=== PATIENT | female | born 2005 | race Caucasian/White ===

== ENCOUNTER 2025-05-18 13:46 | Emergency (ER) | payer OTHER, BC, SELFPAY ==
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
--- OUTSIDE RECORDS SUMMARY | 2025-05-18 13:50 | XMS_ITS | Patient Health Record ---
Author Organization [facility] Address [address] [place] [address] Care Team Providers Care Double Bottom Driver Name Role Phone Kinga Sun Unavailable [phone] Allergies No Known Allergies Results Component Value Reference Range Notes PRESCRIBED DRUGS, medMATCH(R ) ([id number]) Reviewed date:08/09/2024 10:58:19 AM Interpretation: Performing Lab:[facility] HUMPHRIES-[id number] [id number] Braeden Gallegos MD Notes/Report: FASTING: NO medMATCH Summary Prescribed Prescribed Not Prescribed Consistent Inconsistent Inconsistent Marijuana Metabolite DRUG MONITOR, MARIJUANA META B, QN, URINE ([id number]) Reviewed date:08/09/2024 10:58:04 AM Interpretation: Performing Lab:[facility] CEVALLOS-[facility] [id number] [facility] [id number] Mal Jeffers, Director - [id number] Benny AndersonDis[facility] [employer]-[place] Notes/Report: FASTING: NO Marijuana Metabolite 240 <5 ng/mL medMATCH Marijuana Metab INCONSISTENT Marijuana Comments See Adela abernathy Notes, LDT Notes Notes and Comments This drug testing is for medical treatment only. Analysis was performed as non-forensic testing and these results should be used only by healthcare providers to render diagnosis or treatment, or to monitor progress of medical conditions. Marijuana Notes: Marijuana Metabolite detected is consistent with exposure to Marijuana (THC) and/or hemp derived products. Some jurisdictions do not include hemp within the definition of Marijuana. LDT Notes: Confirmation tests were developed and their analytical performance characteristics have been determined by [employer]. It has not been cleared or approved by the FDA. This assay has been validated pursuant to the CLIA regulations and is used for clinical purposes. medCoresonicTCH(R) enables providers to identify if drug use is consistent or inconsistent with a corresponding prescribed medication(s) list. Healthcare Providers needing Interpretation assistance, please contact us at [phone] ( ) M-F, 8am to 10pm EST Test Reviewed date:07/28/2024 10:48:16 AM Interpretation: Performing Lab: Notes/Report: Test urine NEG 0 - 0 UDT Reviewed date:07/28/2024 10:48:16 AM Interpretation: Performing Lab: Notes/Report: THC POS 0 - 50 ng/ml Cocaine NEG 0 - 300 ng/ml Amphetamine NEG 0 - 1000 ng/ml Buprenorphine (BUP) NEG 0 - 10 ng/ml Secobarbital (Bar) NEG 0 - 300 ng/ml Oxazepam (BZO) NEG 0 - 300 ng/ml 0-qsvxgzjafb-8,5-ppngnjuz-2, 3-diphen ylpyrrolidine (EDDP) NEG 0 - 300 ng/ml Methamphetamine (MET) NEG 0 - 1000 ng/ml Methylenedioxymethamphetamine (MDMA) NEG 0 - 500 ng/ml Morphine (MOP 300/[id number]) NEG 0 - 300 ng/ml Methadone (MTD) NEG 0 - 300 ng/ml Phencyclidine (PCP) NEG 0 - 25 ng/ml Nortriptyline (TCA) NEG 0 - 1000 ng/ml Oxycodone NEG 0 - 300 ng/ml x NEG 0 - 300 ng/ml Reason For Referral No Information Medications Medication SIG (Take, Route, Frequency, Duration) Notes Start Date End Date Status buPROPion HCl ER (XL) 150 MG TAKE 1 TABLET BY MOUTH DAILY; Duration: 90 Active hydrOXYzine HCl 10 MG 1 tablet Orally tw ice a day; Duration: 30 days 01/12/2025 Active Social History Tobacco Use: Social History Observation Description Date Details (start date - stop date) Never Smoker NA - NA Sex Assigned At : Social History Observation Description Sex Assigned At Female Household Question Answer Notes Marital status: single Number of adults in household: 1 Number of children in household: 0 Level of education: not finished college in [employer]- plan to graduate 03/18 [employer] Sexual History Question Answer Notes Had sex in the past 12 months (vaginal, oral, or anal)? Yes with Men only Prevention strategies discussed: Condoms Tobacco Control (Standard) Question Answer Notes Tobacco use: Nonsmoker Additional Findings: Tobacco non-user Current no nsmoker AUDIT-C (Standard) Question Answer Notes Did you have a drink contain ing alcohol in the past year? Yes How often did you have six o r more drinks on one occasion in the past year? Less than monthly (1 point) How many drinks did you have on a typical day when you were drinking in the past year? 3 or 4 drinks (1 point) How often did you have a dri nk containing alcohol in the past year? Monthly or less (1 point) Points 3 Problems Problem Type SNOMED Code ICD Code Onset Dates Problem Status W/U Status Risk Notes Problem Depression Screening (441408367) Encounter for screening for depression (Z13.31) Active confirmed Problem Generalized anxiety disorder (54927356) NAREN (generalized anxiety disorder) (F41.1) Active confirmed Problem Mild recurrent major depression (83016079) MDD (major depressive disorder), recurrent episode, mild (F33.0) Active confirmed Problem Nondependent cannabis abuse (476497552) Marijuana use (F12.90) Active confirmed Vital Signs Heart Rate 62 /min 10/23/2024 Respiratory Rate 16 /min 08/25/2024 Height-cm 160.02 cm 10/23/2024 Blood pressure diastolic 73 mm Hg 10/23/2024 Weight-kg 82.55 kg 10/23/2024 Height 63 in 10/23/2024 Blood pressure systolic 121 mm Hg 10/23/2024 Weight 182.0 lbs 10/23/2024 BMI 32.24 kg/m2 10/23/2024 Encounters Encounter Location Date Provider Diagnosis [facility] [address] [place] [address] 07/28/2024 Kinga Sun MDD (major depressive disorder), recurrent episode, mild F33.0 ; NAREN (generalized anxiety disorder) F41.1 and Marijuana use F12.90 [facility] [address] [place] [address] 08/25/2024 Kinga Sun MDD (major depressive disorder), recurrent episode, mild F33.0 ; NAREN (generalized anxiety disorder) F41.1 and Marijuana use F12.90 [facility] [address] [place] [address] 10/23/2024 Kinga Sun MDD (major depressive disorder), recurrent episode, mild F33.0 ; NAREN (generalized anxiety disorder) F41.1 and Marijuana use F12.90 [facility] [address] [place] [address] 01/12/2025 Kinga Sun Encounter for screening for depression Z13.31 ; MDD (major depressive disorder), recurrent episode, mild F33.0 ; NAREN (generalized anxiety disorder) F41.1 and Marijuana use F12.90 [facility] [address] [place] [address] 01/24/2025 Kinga Sun NAREN (generalized anxiety disorder) F41.1 Assessments Encounter Date Diagnosis (ICD Code) Assessment Notes Treatment Notes Treatment Clinical Notes Section Notes 07/28/2024 NAREN (generalized anxiety disorder) (ICD-10 - F41.1) Learning About Generalized Anxiety Disorder material was published, Generalized Anxiety Disorder: Care Instructions material was published, Learning About Anxiety Disorders material was published depression- disucss and educated on medication options conitnue therapy anxiety- disucss and educated on medication options Will add Buspar 5 mg twice a day for anxiety and depression cannabis use- educated on decrease use to stopping no control substance prescribed by ROSARIO Recommend decrease/stop cannabis use as it can negatively impact mood, motivation, anxiety, sleep, focus/concentratio n/memory (vigilance, elasticity, processing and attention); can also contribute to development of psychosis. http_s://www.nimh. nih.gov/health/top ics/mental-health- medications http_s://www.bao. org/Klrvb-Fcjpzd-D llness/Treatments/ Gtdqdn-Annsph-Gmmz cations Recommend decrease/stop cannabis use as it may be negatively impacting mood, motivation, anxiety, sleep, focus; can also contribute to development of psychosis Cannabis/marijuana information: http_s://karen.nih. gov/publications/d rugfacts/cannabis- marijuana http_s://www.[employer]/cannabi u-gss-mxiatiuf-mar ijuana-adhd/ http_s://www.bao. org/Ilwbp-Mweenb-G llness/Mental-Heal th-Conditions http_s://psychcent [employer].com/depression /omm-pssxwtrgc-tdw cvoeq-uz-iteqsoxqi n#treatments http__s://www.nimh .nih.gov/health/to pics/mental-health -medications http__s://www.bao .org/About-Mental- Illness/Treatments /Gpcait-Mjojse-Uft ications educated on all medications, benefits, side effects and risk, and educated on depression, anxiety, and ADHD, mood d/o and educated on compliance of medications, metabolic and movement d/o education appointment's, continue therapy discussion with patient about course of treatment and patient instructions. education on serotonin syndrome Discussed and educated pt regarding benzodiazepines are generally not intended for prolonged use and that use can cause tolerance, dependence, depression, and associated memory issues including dementias (this list is not exhaustive). Benzodiazepine use is generally not recommended concurrently with pain medications and/or other controlled substances educated on all medications, benefits, side effects and risk, and educated on depression, anxiety, and ADHD, mood d/o and educated on compliance of medications, metabolic and movement d/o education appointment is, continue therapy discussion with patient about course of treatment and patient instructions. education on serotonin syndrome SSRI/SNRI side effects discussed including but not limited to, gastric upset, nausea, vomiting, diarrhea and/or constipation, weight changes, sexual side effects including loss of libido, increased suicidal thoughts/behaviors in children and young adults, and serotonin syndrome. Medication Management and Follow-Up - Plan: - Schedule follow-up appointments every 1-3 months to monitor the patient's response to the medication regimen. - Reinforce the importance of avoiding recreational drug use due to potential neurotoxicity and interactions with prescribed medications. 07/28/2024 MDD (major depressive disorder), recurrent episode, mild (ICD-10 - F33.0) Learning About Depression Screening material was published, Learning About How to Get Help During a Mental Health Crisis material was published, Learning About Depression During material was published depression- disucss and educated on medication options conitnue therapy anxiety- disucss and educated on medication options Will add Buspar 5 mg twice a day for anxiety and depression cannabis use- educated on decrease use to stopping no control substance prescribed by ROSARIO Recommend decrease/stop cannabis use as it can negatively impact mood, motivation, anxiety, sleep, focus/concentratio n/memory (vigilance, elasticity, processing and attention); can also contribute to development of psychosis. http_s://www.nimh. nih.gov/health/top ics/mental-health- medications http_s://www.bao. org/Lwxsu-Laupds-O llness/Treatments/ Eicyee-Xuotsv-Jzlk cations Recommend decrease/stop cannabis use as it may be negatively impacting mood, motivation, anxiety, sleep, focus; can also contribute to development of psychosis Cannabis/marijuana information: http_s://karen.nih. gov/publications/d rugfacts/cannabis- marijuana http_s://www.[employer]/cannabi j-hgw-dxydlyik-mar ijuana-adhd/ http_s://www.bao. org/Hdyed-Lumqah-V llness/Mental-Heal th-Conditions http_s://psychShowroomprive.com/depression /yue-faagcxvwc-lob duyue-vg-xabktoesb n#treatments http__s://www.nimh .nih.gov/health/to pics/mental-health -medications http__s://www.bao .org/About-Mental- Illness/Treatments /Llfdaq-Qfennm-Qkr ications educated on all medications, benefits, side effects and risk, and educated on depression, anxiety, and ADHD, mood d/o and educated on compliance of medications, metabolic and movement d/o education appointment's, continue therapy discussion with patient about course of treatment and patient instructions. education on serotonin syndrome Discussed and educated pt regarding benzodiazepines are generally not intended for prolonged use and that use can cause tolerance, dependence, depression, and associated memory issues including dementias (this list is not exhaustive). Benzodiazepine use is generally not recommended concurrently with pain medications and/or other controlled substances educated on all medications, benefits, side effects and risk, and educated on depression, anxiety, and ADHD, mood d/o and educated on compliance of medications, metabolic and movement d/o education appointment is, continue therapy discussion with patient about course of treatment and patient instructions. education on serotonin syndrome SSRI/SNRI side effects discussed including but not limited to, gastric upset, nausea, vomiting, diarrhea and/or constipation, weight changes, sexual side effects including loss of libido, increased suicidal thoughts/behaviors in children and young adults, and serotonin syndrome. Medication Management and Follow-Up - Plan: - Schedule follow-up appointments every 1-3 months to monitor the patient's response to the medication regimen. - Reinforce the importance of avoiding recreational drug use due to potential neurotoxicity and interactions with prescribed medications. 08/25/2024 MDD (major depressive disorder), recurrent episode, mild (ICD-10 - F33.0) Learning About Depression Screening material was published, Learning About How to Get Help During a Mental Health Crisis material was published, Learning About Depression During material was published depression- disucss and educated on medication options conitnue therapy Add Wellbutrin XL 150 mg in am anxiety- disucss and educated on medication options d/c Buspar 5 mg twice a day for anxiety and depression- patient was taking daily - did not remember to take BID and also needed to eat with rx cannabis use- educated on decrease use to stopping no control substance prescribed by ROSARIO Recommend decrease/stop cannabis use as it can negatively impact mood, motivation, anxiety, sleep, focus/concentratio n/memory (vigilance, elasticity, processing and attention); can also contribute to development of psychosis. http_s://www.nimh. nih.gov/health/top ics/mental-health- medications http_s://www.bao. org/Ybnkp-Kcdcsm-Y llness/Treatments/ Tpfixc-Tynehf-Sgxa cations Recommend decrease/stop cannabis use as it may be negatively impacting mood, motivation, anxiety, sleep, focus; can also contribute to development of psychosis Cannabis/marijuana information: http_s://karen.nih. gov/publications/d rugfacts/cannabis- marijuana http_s://www.[employer].hCentive/cannabi q-bmr-kccaqlss-mar ijuana-adhd/ http_s://www.bao. org/Oohkj-Vfcsnb-S llness/Mental-Heal th-Conditions http_s://psychcent [employer] [employer].com/depression /dng-hwgufusty-duu jykoe-fl-vvznelgla n#treatments http__s://www.nimh .nih.gov/health/to pics/mental-health -medications http__s://www.bao .org/About-Mental- Illness/Treatments /Xdjros-Cobehb-Euc ications educated on all medications, benefits, side effects and risk, and educated on depression, anxiety, and ADHD, mood d/o and educated on compliance of medications, metabolic and movement d/o education appointment's, continue therapy discussion with patient about course of treatment and patient instructions. education on serotonin syndrome Discussed and educated pt regarding benzodiazepines are generally not intended for prolonged use and that use can cause tolerance, dependence, depression, and associated memory issues including dementias (this list is not exhaustive). Benzodiazepine use is generally not recommended concurrently with pain medications and/or other controlled substances educated on all medications, benefits, side effects and risk, and educated on depression, anxiety, and ADHD, mood d/o and educated on compliance of medications, metabolic and movement d/o education appointment is, continue therapy discussion with patient about course of treatment and patient instructions. education on serotonin syndrome SSRI/SNRI side effects discussed including but not limited to, gastric upset, nausea, vomiting, diarrhea and/or constipation, weight changes, sexual side effects including loss of libido, increased suicidal thoughts/behaviors in children and young adults, and serotonin syndrome. Medication Management and Follow-Up - Plan: - Schedule follow-up appointments every 1-3 months to monitor the patient's response to the medication regimen. - Reinforce the importance of avoiding recreational drug use due to potential neurotoxicity and interactions with prescribed medications. 10/23/2024 MDD (major depressive disorder), recurrent episode, mild (ICD-10 - F33.0) Learning About Depression Screening material was published, Learning About How to Get Help During a Mental Health Crisis material was published, Learning About Depression During material was published depression- disucss and educated on medication options conitnue therapy Wellbutrin XL 150 mg in am anxiety- disucss and educated on medication options cannabis use- educated on decrease use to stopping no control substance prescribed by ROSARIO Recommend decrease/stop cannabis use as it can negatively impact mood, motivation, anxiety, sleep, focus/concentratio n/memory (vigilance, elasticity, processing and attention); can also contribute to development of psychosis. http_s://www.nim. nih.gov/health/top ics/mental-health- medications http_s://www.bao. org/Sebvc-Majryh-U llness/Treatments/ Axnbjd-Uzdeol-Iumm cations Recommend decrease/stop cannabis use as it may be negatively impacting mood, motivation, anxiety, sleep, focus; can also contribute to development of psychosis Cannabis/marijuana information: http_s://karen.nih. gov/publications/d rugfacts/cannabis- marijuana http_s://www.[employer]/cannabi r-nwe-jwhqfsnb-mar ijuana-adhd/ http_s://www.bao. org/Zkwal-Bjdtuu-G llness/Mental-Heal th-Conditions http_s://psychShowroomprive.com/depression /xyb-ewopzabhz-cgk alzit-yf-ypoiibspj n#treatments http__s://www.nimh .nih.gov/health/to pics/mental-health -medications http__s://www.bao .org/About-Mental- Illness/Treatments /Jevhnc-Xendrf-Isx ications educated on all medications, benefits, side effects and risk, and educated on depression, anxiety, and ADHD, mood d/o and educated on compliance of medications, metabolic and movement d/o education appointment's, continue therapy discussion with patient about course of treatment and patient instructions. education on serotonin syndrome Discussed and educated pt regarding benzodiazepines are generally not intended for prolonged use and that use can cause tolerance, dependence, depression, and associated memory issues including dementias (this list is not exhaustive). Benzodiazepine use is generally not recommended concurrently with pain medications and/or other controlled substances educated on all medications, benefits, side effects and risk, and educated on depression, anxiety, and ADHD, mood d/o and educated on compliance of medications, metabolic and movement d/o education appointment is, continue therapy discussion with patient about course of treatment and patient instructions. education on serotonin syndrome SSRI/SNRI side effects discussed including but not limited to, gastric upset, nausea, vomiting, diarrhea and/or constipation, weight changes, sexual side effects including loss of libido, increased suicidal thoughts/behaviors in children and young adults, and serotonin syndrome. Medication Management and Follow-Up - Plan: - Schedule follow-up appointments every 1-3 months to monitor the patient's response to the medication regimen. - Reinforce the importance of avoiding recreational drug use due to potential neurotoxicity and interactions with prescribed medications. 01/12/2025 Encounter for screening for depression (ICD-10 - Z13.31) depression- disucss and educated on medication options conitnue therapy Wellbutrin XL 150 mg in am anxiety- disucss and educated on medication options Add Vistaril 10 mg twice a day as needed cannabis use- educated on decrease use to stopping no control substance prescribed by ROSARIO Recommend decrease/stop cannabis use as it can negatively impact mood, motivation, anxiety, sleep, focus/concentratio n/memory (vigilance, elasticity, processing and attention); can also contribute to development of psychosis. http_s://www.nimh. nih.gov/health/top ics/mental-health- medications http_s://www.bao. org/Rlyss-Dxauev-L llness/Treatments/ Stjlgd-Lpsehu-Qwvh cations Recommend decrease/stop cannabis use as it may be negatively impacting mood, motivation, anxiety, sleep, focus; can also contribute to development of psychosis Cannabis/marijuana information: http_s://karen.nih. gov/publications/d rugfacts/cannabis- marijuana http_s://www.[employer]/cannabi o-cah-fyzjksmm-mar ijuana-adhd/ http_s://www.bao. org/Gvons-Bbjsex-K llness/Mental-Heal th-Conditions http_s://psychShowroomprive.com/depression /aih-mkshyjptq-hnd ovskr-ho-szcztxugk n#treatments http__s://www.nimh .nih.gov/health/to pics/mental-health -medications http__s://www.bao .org/About-Mental- Illness/Treatments /Gpukxl-Fcskci-Irb ications educated on all medications, benefits, side effects and risk, and educated on depression, anxiety, and ADHD, mood d/o and educated on compliance of medications, metabolic and movement d/o education appointment's, continue therapy discussion with patient about course of treatment and patient instructions. education on serotonin syndrome Discussed and educated pt regarding benzodiazepines are generally not intended for prolonged use and that use can cause tolerance, dependence, depression, and associated memory issues including dementias (this list is not exhaustive). Benzodiazepine use is generally not recommended concurrently with pain medications and/or other controlled substances educated on all medications, benefits, side effects and risk, and educated on depression, anxiety, and ADHD, mood d/o and educated on compliance of medications, metabolic and movement d/o education appointment is, continue therapy discussion with patient about course of treatment and patient instructions. education on serotonin syndrome SSRI/SNRI side effects discussed including but not limited to, gastric upset, nausea, vomiting, diarrhea and/or constipation, weight changes, sexual side effects including loss of libido, increased suicidal thoughts/behaviors in children and young adults, and serotonin syndrome. Medication Management and Follow-Up - Plan: - Schedule follow-up appointments every 1-3 months to monitor the patient's response to the medication regimen. - Reinforce the importance of avoiding recreational drug use due to potential neurotoxicity and interactions with prescribed medications. 01/24/2025 NAREN (generalized anxiety disorder) (ICD-10 - F41.1) 10/23/2024 NAREN (generalized anxiety disorder) (ICD-10 - F41.1) Learning About Generalized Anxiety Disorder material was published, Generalized Anxiety Disorder: Care Instructions material was published, Learning About Anxiety Disorders material was published depression- disucss and educated on medication options conitnue therapy Wellbutrin XL 150 mg in am anxiety- disucss and educated on medication options cannabis use- educated on decrease use to stopping no control substance prescribed by ROSARIO Recommend decrease/stop cannabis use as it can negatively impact mood, motivation, anxiety, sleep, focus/concentratio n/memory (vigilance, elasticity, processing and attention); can also contribute to development of psychosis. http_s://www.nimh. nih.gov/health/top ics/mental-health- medications http_s://www.bao. org/Yrqca-Zjnhdo-B llness/Treatments/ Duxbvb-Wnyfjc-Rref cations Recommend decrease/stop cannabis use as it may be negatively impacting mood, motivation, anxiety, sleep, focus; can also contribute to development of psychosis Cannabis/marijuana information: http_s://karen.nih. gov/publications/d rugfacts/cannabis- marijuana http_s://www.[employer].hCentive/cannabi g-isc-qqzkpkpu-mar ijuana-adhd/ http_s://www.bao. org/Mdziy-Kwmajm-W llness/Mental-Heal th-Conditions http_s://psychcent ral.com/depression /dwq-vwpxjxnjh-tzo soqbs-ks-rxbhvqfbu n#treatments http__s://www.[facility] .nih.gov/health/to pics/mental-health -medications http__s://www.bao .org/About-Mental- Illness/Treatments /Iomchv-Lcgsah-Izf ications educated on all medications, benefits, side effects and risk, and educated on depression, anxiety, and ADHD, mood d/o and educated on compliance of medications, metabolic and movement d/o education appointment's, continue therapy discussion with patient about course of treatment and patient instructions. education on serotonin syndrome Discussed and educated pt regarding benzodiazepines are generally not intended for prolonged use and that use can cause tolerance, dependence, depression, and associated memory issues including dementias (this list is not exhaustive). Benzodiazepine use is generally not recommended concurrently with pain medications and/or other controlled substances educated on all medications, benefits, side effects and risk, and educated on depression, anxiety, and ADHD, mood d/o and educated on compliance of medications, metabolic and movement d/o education appointment is, continue therapy discussion with patient about course of treatment and patient instructions. education on serotonin syndrome SSRI/SNRI side effects discussed including but not limited to, gastric upset, nausea, vomiting, diarrhea and/or constipation, weight changes, sexual side effects including loss of libido, increased suicidal thoughts/behaviors in children and young adults, and serotonin syndrome. Medication Management and Follow-Up - Plan: - Schedule follow-up appointments every 1-3 months to monitor the patient's response to the medication regimen. - Reinforce the importance of avoiding recreational drug use due to potential neurotoxicity and interactions with prescribed medications. 01/12/2025 MDD (major depressive disorder), recurrent episode, mild (ICD-10 - F33.0) Learning About Depression Screening material was published, Learning About How to Get Help During a Mental Health Crisis material was published, Learning About Depression During material was published depression- disucss and educated on medication options conitnue therapy Wellbutrin XL 150 mg in am anxiety- disucss and educated on medication options Add Vistaril 10 mg twice a day as needed cannabis use- educated on decrease use to stopping no control substance prescribed by ROSARIO Recommend decrease/stop cannabis use as it can negatively impact mood, motivation, anxiety, sleep, focus/concentratio n/memory (vigilance, elasticity, processing and attention); can also contribute to development of psychosis. http_s://www.nimh. nih.gov/health/top ics/mental-health- medications http_s://www.bao. org/Lwott-Ntomol-E llness/Treatments/ Oaxysr-Uxduwh-Doxm cations Recommend decrease/stop cannabis use as it may be negatively impacting mood, motivation, anxiety, sleep, focus; can also contribute to development of psychosis Cannabis/marijuana information: http_s://karen.nih. gov/publications/d rugfacts/cannabis- marijuana http_s://www.[employer]/cannabi m-sef-dctfyjxj-mar ijuana-adhd/ http_s://www.bao. org/Hxtrs-Bbuivh-V llness/Mental-Heal th-Conditions http_s://[employer]/depression /ete-gpkkdgeyg-gdg quufe-xz-ykwvwvoyw n#treatments http__s://www.nimh .nih.gov/health/to pics/mental-health -medications http__s://www.bao .org/About-Mental- Illness/Treatments /Mzfsbi-Molnxu-Nio ications educated on all medications, benefits, side effects and risk, and educated on depression, anxiety, and ADHD, mood d/o and educated on compliance of medications, metabolic and movement d/o education appointment's, continue therapy discussion with patient about course of treatment and patient instructions. education on serotonin syndrome Discussed and educated pt regarding benzodiazepines are generally not intended for prolonged use and that use can cause tolerance, dependence, depression, and associated memory issues including dementias (this list is not exhaustive). Benzodiazepine use is generally not recommended concurrently with pain medications and/or other controlled substances educated on all medications, benefits, side effects and risk, and educated on depression, anxiety, and ADHD, mood d/o and educated on compliance of medications, metabolic and movement d/o education appointment is, continue therapy discussion with patient about course of treatment and patient instructions. education on serotonin syndrome SSRI/SNRI side effects discussed including but not limited to, gastric upset, nausea, vomiting, diarrhea and/or constipation, weight changes, sexual side effects including loss of libido, increased suicidal thoughts/behaviors in children and young adults, and serotonin syndrome. Medication Management and Follow-Up - Plan: - Schedule follow-up appointments every 1-3 months to monitor the patient's response to the medication regimen. - Reinforce the importance of avoiding recreational drug use due to potential neurotoxicity and interactions with prescribed medications. 07/28/2024 Marijuana use (ICD-10 - F12.90) Marijuana Use: Care Instructions material was published, Learning About Cannabis Use Disorder material was published depression- disucss and educated on medication options conitnue therapy anxiety- disucss and educated on medication options Will add Buspar 5 mg twice a day for anxiety and depression cannabis use- educated on decrease use to stopping no control substance prescribed by ROSARIO Recommend decrease/stop cannabis use as it can negatively impact mood, motivation, anxiety, sleep, focus/concentratio n/memory (vigilance, elasticity, processing and attention); can also contribute to development of psychosis. http_s://www.nimh. nih.gov/health/top ics/mental-health- medications http_s://www.bao. org/Tkbeg-Krnfdh-S llness/Treatments/ Vpjuzv-Nvwrks-Fbki cations Recommend decrease/stop cannabis use as it may be negatively impacting mood, motivation, anxiety, sleep, focus; can also contribute to development of psychosis Cannabis/marijuana information: http_s://karen.nih. gov/publications/d rugfacts/cannabis- marijuana http_s://www.[employer]/cannabi d-fcw-ctfseiah-mar ijuana-adhd/ http_s://www.bao. org/Czzvg-Mponkb-V llness/Mental-Heal th-Conditions http_s://psychcent [employer].com/depression /pmi-jmjtfqyyb-toe uteyk-eh-btdknrsmd n#treatments http__s://www.nimh .nih.gov/health/to pics/mental-health -medications http__s://www.bao .org/About-Mental- Illness/Treatments /Yvqxrx-Pfqhkx-Agm ications educated on all medications, benefits, side effects and risk, and educated on depression, anxiety, and ADHD, mood d/o and educated on compliance of medications, metabolic and movement d/o education appointment's, continue therapy discussion with patient about course of treatment and patient instructions. education on serotonin syndrome Discussed and educated pt regarding benzodiazepines are generally not intended for prolonged use and that use can cause tolerance, dependence, depression, and associated memory issues including dementias (this list is not exhaustive). Benzodiazepine use is generally not recommended concurrently with pain medications and/or other controlled substances educated on all medications, benefits, side effects and risk, and educated on depression, anxiety, and ADHD, mood d/o and educated on compliance of medications, metabolic and movement d/o education appointment is, continue therapy discussion with patient about course of treatment and patient instructions. education on serotonin syndrome SSRI/SNRI side effects discussed including but not limited to, gastric upset, nausea, vomiting, diarrhea and/or constipation, weight changes, sexual side effects including loss of libido, increased suicidal thoughts/behaviors in children and young adults, and serotonin syndrome. Medication Management and Follow-Up - Plan: - Schedule follow-up appointments every 1-3 months to monitor the patient's response to the medication regimen. - Reinforce the importance of avoiding recreational drug use due to potential neurotoxicity and interactions with prescribed medications. 08/25/2024 NAREN (generalized anxiety disorder) (ICD-10 - F41.1) Learning About Generalized Anxiety Disorder material was published, Generalized Anxiety Disorder: Care Instructions material was published, Learning About Anxiety Disorders material was published depression- disucss and educated on medication options conitnue therapy Add Wellbutrin XL 150 mg in am anxiety- disucss and educated on medication options d/c Buspar 5 mg twice a day for anxiety and depression- patient was taking daily - did not remember to take BID and also needed to eat with rx cannabis use- educated on decrease use to stopping no control substance prescribed by ROSARIO Recommend decrease/stop cannabis use as it can negatively impact mood, motivation, anxiety, sleep, focus/concentratio n/memory (vigilance, elasticity, processing and attention); can also contribute to development of psychosis. http_s://www.nimh. nih.gov/health/top ics/mental-health- medications http_s://www.abo. org/Dgupa-Ywzfwi-S llness/Treatments/ Ecmvgt-Ctyqmr-Qoed cations Recommend decrease/stop cannabis use as it may be negatively impacting mood, motivation, anxiety, sleep, focus; can also contribute to development of psychosis Cannabis/marijuana information: http_s://karen.nih. gov/publications/d rugfacts/cannabis- marijuana http_s://www.[employer]/cannabi z-ryt-zbaadaui-mar ijuana-adhd/ http_s://www.bao. org/Xzkbu-Mxwonj-L llness/Mental-Heal th-Conditions http_s://[employer].com/depression /bay-muoddbmwc-gcx wvctg-nr-oevuvkzfs n#treatments http__s://www.[facility] .nih.gov/health/to pics/mental-health -medications http__s://www.bao .org/About-Mental- Illness/Treatments /Fwakfb-Kkamfn-Ufp ications educated on all medications, benefits, side effects and risk, and educated on depression, anxiety, and ADHD, mood d/o and educated on compliance of medications, metabolic and movement d/o education appointment's, continue therapy discussion with patient about course of treatment and patient instructions. education on serotonin syndrome Discussed and educated pt regarding benzodiazepines are generally not intended for prolonged use and that use can cause tolerance, dependence, depression, and associated memory issues including dementias (this list is not exhaustive). Benzodiazepine use is generally not recommended concurrently with pain medications and/or other controlled substances educated on all medications, benefits, side effects and risk, and educated on depression, anxiety, and ADHD, mood d/o and educated on compliance of medications, metabolic and movement d/o education appointment is, continue therapy discussion with patient about course of treatment and patient instructions. education on serotonin syndrome SSRI/SNRI side effects discussed including but not limited to, gastric upset, nausea, vomiting, diarrhea and/or constipation, weight changes, sexual side effects including loss of libido, increased suicidal thoughts/behaviors in children and young adults, and serotonin syndrome. Medication Management and Follow-Up - Plan: - Schedule follow-up appointments every 1-3 months to monitor the patient's response to the medication regimen. - Reinforce the importance of avoiding recreational drug use due to potential neurotoxicity and interactions with prescribed medications. 10/23/2024 Marijuana use (ICD-10 - F12.90) Marijuana Use: Care Instructions material was published, Learning About Cannabis Use Disorder material was published depression- disucss and educated on medication options conitnue therapy Wellbutrin XL 150 mg in am anxiety- disucss and educated on medication options cannabis use- educated on decrease use to stopping no control substance prescribed by ROSARIO Recommend decrease/stop cannabis use as it can negatively impact mood, motivation, anxiety, sleep, focus/concentratio n/memory (vigilance, elasticity, processing and attention); can also contribute to development of psychosis. http_s://www.nimh. nih.gov/health/top ics/mental-health- medications http_s://www.bao. org/Zjsyw-Qirhdd-E llness/Treatments/ Guvset-Afpnhk-Oarl cations Recommend decrease/stop cannabis use as it may be negatively impacting mood, motivation, anxiety, sleep, focus; can also contribute to development of psychosis Cannabis/marijuana information: http_s://karen.nih. gov/publications/d rugfacts/cannabis- marijuana http_s://www.[employer]/cannabi l-ezi-tmwlftiy-mar ijuana-adhd/ http_s://www.bao. org/Xrdwl-Iaoxxk-E llness/Mental-Heal th-Conditions http_s://[employer].com/depression /ijw-pfsldcxdm-uup rbihk-xv-xacnftdeb n#treatments http__s://www.nimh .nih.gov/health/to pics/mental-health -medications http__s://www.bao .org/About-Mental- Illness/Treatments /Wjmwec-Ihqssd-Edg ications educated on all medications, benefits, side effects and risk, and educated on depression, anxiety, and ADHD, mood d/o and educated on compliance of medications, metabolic and movement d/o education appointment's, continue therapy discussion with patient about course of treatment and patient instructions. education on serotonin syndrome Discussed and educated pt regarding benzodiazepines are generally not intended for prolonged use and that use can cause tolerance, dependence, depression, and associated memory issues including dementias (this list is not exhaustive). Benzodiazepine use is generally not recommended concurrently with pain medications and/or other controlled substances educated on all medications, benefits, side effects and risk, and educated on depression, anxiety, and ADHD, mood d/o and educated on compliance of medications, metabolic and movement d/o education appointment is, continue therapy discussion with patient about course of treatment and patient instructions. education on serotonin syndrome SSRI/SNRI side effects discussed including but not limited to, gastric upset, nausea, vomiting, diarrhea and/or constipation, weight changes, sexual side effects including loss of libido, increased suicidal thoughts/behaviors in children and young adults, and serotonin syndrome. Medication Management and Follow-Up - Plan: - Schedule follow-up appointments every 1-3 months to monitor the patient's response to the medication regimen. - Reinforce the importance of avoiding recreational drug use due to potential neurotoxicity and interactions with prescribed medications. 08/25/2024 Marijuana use (ICD-10 - F12.90) Marijuana Use: Care Instructions material was published, Learning About Cannabis Use Disorder material was published depression- disucss and educated on medication options conitnue therapy Add Wellbutrin XL 150 mg in am anxiety- disucss and educated on medication options d/c Buspar 5 mg twice a day for anxiety and depression- patient was taking daily - did not remember to take BID and also needed to eat with rx cannabis use- educated on decrease use to stopping no control substance prescribed by ROSARIO Recommend decrease/stop cannabis use as it can negatively impact mood, motivation, anxiety, sleep, focus/concentratio n/memory (vigilance, elasticity, processing and attention); can also contribute to development of psychosis. http_s://www.nimh. nih.gov/health/top ics/mental-health- medications http_s://www.bao. org/Zdpvm-Cjregm-F llness/Treatments/ Jtqexn-Pfhlxn-Loxq cations Recommend decrease/stop cannabis use as it may be negatively impacting mood, motivation, anxiety, sleep, focus; can also contribute to development of psychosis Cannabis/marijuana information: http_s://karen.nih. gov/publications/d rugfacts/cannabis- marijuana http_s://www.[employer]/cannabi c-wnh-cmhoyqtb-mar ijuana-adhd/ http_s://www.bao. org/Cyfwg-Portxs-S llness/Mental-Heal th-Conditions http_s://psychcent [employer].com/depression /nar-bjerpdwpc-dcr dceyi-pv-lterhaemz n#treatments http__s://www.nimh .nih.gov/health/to pics/mental-health -medications http__s://www.bao .org/About-Mental- Illness/Treatments /Jtcnmo-Lslhgz-Trz ications educated on all medications, benefits, side effects and risk, and educated on depression, anxiety, and ADHD, mood d/o and educated on compliance of medications, metabolic and movement d/o education appointment's, continue therapy discussion with patient about course of treatment and patient instructions. education on serotonin syndrome Discussed and educated pt regarding benzodiazepines are generally not intended for prolonged use and that use can cause tolerance, dependence, depression, and associated memory issues including dementias (this list is not exhaustive). Benzodiazepine use is generally not recommended concurrently with pain medications and/or other controlled substances educated on all medications, benefits, side effects and risk, and educated on depression, anxiety, and ADHD, mood d/o and educated on compliance of medications, metabolic and movement d/o education appointment is, continue therapy discussion with patient about course of treatment and patient instructions. education on serotonin syndrome SSRI/SNRI side effects discussed including but not limited to, gastric upset, nausea, vomiting, diarrhea and/or constipation, weight changes, sexual side effects including loss of libido, increased suicidal thoughts/behaviors in children and young adults, and serotonin syndrome. Medication Management and Follow-Up - Plan: - Schedule follow-up appointments every 1-3 months to monitor the patient's response to the medication regimen. - Reinforce the importance of avoiding recreational drug use due to potential neurotoxicity and interactions with prescribed medications. 01/12/2025 NAREN (generalized anxiety disorder) (ICD-10 - F41.1) Learning About Generalized Anxiety Disorder material was published, Generalized Anxiety Disorder: Care Instructions material was published, Learning About Anxiety Disorders material was published depression- disucss and educated on medication options conitnue therapy Wellbutrin XL 150 mg in am anxiety- disucss and educated on medication options Add Vistaril 10 mg twice a day as needed cannabis use- educated on decrease use to stopping no control substance prescribed by ROSARIO Recommend decrease/stop cannabis use as it can negatively impact mood, motivation, anxiety, sleep, focus/concentratio n/memory (vigilance, elasticity, processing and attention); can also contribute to development of psychosis. http_s://www.nimh. nih.gov/health/top ics/mental-health- medications http_s://www.bao. org/Inkjy-Ylmgju-A llness/Treatments/ Azpvpk-Jqiqmn-Pqum cations Recommend decrease/stop cannabis use as it may be negatively impacting mood, motivation, anxiety, sleep, focus; can also contribute to development of psychosis Cannabis/marijuana information: http_s://karen.nih. gov/publications/d rugfacts/cannabis- marijuana http_s://www.[employer]/cannabi c-qtn-pddhlfod-mar ijuana-adhd/ http_s://www.bao. org/Kidew-Vcidap-L llness/Mental-Heal th-Conditions http_s://psychcent [employer].com/depression /ruw-lxyqmdffc-bdk gobnq-oc-srpzxilap n#treatments http__s://www.nimh .nih.gov/health/to pics/mental-health -medications http__s://www.bao .org/About-Mental- Illness/Treatments /Pwjwcj-Hjsnlj-Sor ications educated on all medications, benefits, side effects and risk, and educated on depression, anxiety, and ADHD, mood d/o and educated on compliance of medications, metabolic and movement d/o education appointment's, continue therapy discussion with patient about course of treatment and patient instructions. education on serotonin syndrome Discussed and educated pt regarding benzodiazepines are generally not intended for prolonged use and that use can cause tolerance, dependence, depression, and associated memory issues including dementias (this list is not exhaustive). Benzodiazepine use is generally not recommended concurrently with pain medications and/or other controlled substances educated on all medications, benefits, side effects and risk, and educated on depression, anxiety, and ADHD, mood d/o and educated on compliance of medications, metabolic and movement d/o education appointment is, continue therapy discussion with patient about course of treatment and patient instructions. education on serotonin syndrome SSRI/SNRI side effects discussed including but not limited to, gastric upset, nausea, vomiting, diarrhea and/or constipation, weight changes, sexual side effects including loss of libido, increased suicidal thoughts/behaviors in children and young adults, and serotonin syndrome. Medication Management and Follow-Up - Plan: - Schedule follow-up appointments every 1-3 months to monitor the patient's response to the medication regimen. - Reinforce the importance of avoiding recreational drug use due to potential neurotoxicity and interactions with prescribed medications. 01/12/2025 Marijuana use (ICD-10 - F12.90) Marijuana Use: Care Instructions material was published, Learning About Cannabis Use Disorder material was published depression- disucss and educated on medication options conitnue therapy Wellbutrin XL 150 mg in am anxiety- disucss and educated on medication options Add Vistaril 10 mg twice a day as needed cannabis use- educated on decrease use to stopping no control substance prescribed by ROSARIO Recommend decrease/stop cannabis use as it can negatively impact mood, motivation, anxiety, sleep, focus/concentratio n/memory (vigilance, elasticity, processing and attention); can also contribute to development of psychosis. http_s://www.nimh. nih.gov/health/top ics/mental-health- medications http_s://www.bao. org/Slpdg-Siqxhx-D llness/Treatments/ Jnklhe-Cwwtve-Kbml cations Recommend decrease/stop cannabis use as it may be negatively impacting mood, motivation, anxiety, sleep, focus; can also contribute to development of psychosis Cannabis/marijuana information: http_s://karen.nih. gov/publications/d rugfacts/cannabis- marijuana http_s://www.[employer]/cannabi x-qmz-rwtjpemf-mar ijuana-adhd/ http_s://www.bao. org/Zpvbf-Wblxqk-T llness/Mental-Heal th-Conditions http_s://[employer].com/depression /lxc-rwveqxlhq-qhu fahdc-qq-ehqtgbtjd n#treatments http__s://www.nimh .nih.gov/health/to pics/mental-health -medications http__s://www.bao .org/About-Mental- Illness/Treatments /Donivp-Pjjeey-Xpp ications educated on all medications, benefits, side effects and risk, and educated on depression, anxiety, and ADHD, mood d/o and educated on compliance of medications, metabolic and movement d/o education appointment's, continue therapy discussion with patient about course of treatment and patient instructions. education on serotonin syndrome Discussed and educated pt regarding benzodiazepines are generally not intended for prolonged use and that use can cause tolerance, dependence, depression, and associated memory issues including dementias (this list is not exhaustive). Benzodiazepine use is generally not recommended concurrently with pain medications and/or other controlled substances educated on all medications, benefits, side effects and risk, and educated on depression, anxiety, and ADHD, mood d/o and educated on compliance of medications, metabolic and movement d/o education appointment is, continue therapy discussion with patient about course of treatment and patient instructions. education on serotonin syndrome SSRI/SNRI side effects discussed including but not limited to, gastric upset, nausea, vomiting, diarrhea and/or constipation, weight changes, sexual side effects including loss of libido, increased suicidal thoughts/behaviors in children and young adults, and serotonin syndrome. Medication Management and Follow-Up - Plan: - Schedule follow-up appointments every 1-3 months to monitor the patient's response to the medication regimen. - Reinforce the importance of avoiding recreational drug use due to potential neurotoxicity and interactions with prescribed medications. 07/28/2024 Other Learning About Depression Screening material was printed, Buspirone Oral Tablet (BUSPIRONE - ORAL) material was published depression- disucss and educated on medication options conitnue therapy anxiety- disucss and educated on medication options Will add Buspar 5 mg twice a day for anxiety and depression cannabis use- educated on decrease use to stopping no control substance prescribed by ROSARIO Recommend decrease/stop cannabis use as it can negatively impact mood, motivation, anxiety, sleep, focus/concentratio n/memory (vigilance, elasticity, processing and attention); can also contribute to development of psychosis. http_s://www.nimh. nih.gov/health/top ics/mental-health- medications http_s://www.bao. org/Ipude-Fselue-Y llness/Treatments/ Gcftmn-Yafkfr-Gnpd cations Recommend decrease/stop cannabis use as it may be negatively impacting mood, motivation, anxiety, sleep, focus; can also contribute to development of psychosis Cannabis/marijuana information: http_s://karen.nih. gov/publications/d rugfacts/cannabis- marijuana http_s://www.FlowCardia.hCentive/cannabi u-lcs-hnrnfezd-mar ijuana-adhd/ http_s://www.bao. org/Pdagd-Xyzzhd-W llness/Mental-Heal th-Conditions http_s://psychcent [employer].com/depression /vsn-ytdgvofns-dbc efesp-iq-jooyjrbjb n#treatments http__s://www.nimh .nih.gov/health/to pics/mental-health -medications http__s://www.bao .org/About-Mental- Illness/Treatments /Fuxziq-Kopdvn-Eug ications educated on all medications, benefits, side effects and risk, and educated on depression, anxiety, and ADHD, mood d/o and educated on compliance of medications, metabolic and movement d/o education appointment's, continue therapy discussion with patient about course of treatment and patient instructions. education on serotonin syndrome Discussed and educated pt regarding benzodiazepines are generally not intended for prolonged use and that use can cause tolerance, dependence, depression, and associated memory issues including dementias (this list is not exhaustive). Benzodiazepine use is generally not recommended concurrently with pain medications and/or other controlled substances educated on all medications, benefits, side effects and risk, and educated on depression, anxiety, and ADHD, mood d/o and educated on compliance of medications, metabolic and movement d/o education appointment is, continue therapy discussion with patient about course of treatment and patient instructions. education on serotonin syndrome SSRI/SNRI side effects discussed including but not limited to, gastric upset, nausea, vomiting, diarrhea and/or constipation, weight changes, sexual side effects including loss of libido, increased suicidal thoughts/behaviors in children and young adults, and serotonin syndrome. Medication Management and Follow-Up - Plan: - Schedule follow-up appointments every 1-3 months to monitor the patient's response to the medication regimen. - Reinforce the importance of avoiding recreational drug use due to potential neurotoxicity and interactions with prescribed medications. 08/25/2024 Other Bupropion Extended Release Oral Tablet (BUPROPION HCL EXTENDED-RELEAS E (ANTIDEPRESSANT ) - ORAL) material was published depression- disucss and educated on medication options conitnue therapy Add Wellbutrin XL 150 mg in am anxiety- disucss and educated on medication options d/c Buspar 5 mg twice a day for anxiety and depression- patient was taking daily - did not remember to take BID and also needed to eat with rx cannabis use- educated on decrease use to stopping no control substance prescribed by ROSARIO Recommend decrease/stop cannabis use as it can negatively impact mood, motivation, anxiety, sleep, focus/concentratio n/memory (vigilance, elasticity, processing and attention); can also contribute to development of psychosis. http_s://www.nimh. nih.gov/health/top ics/mental-health- medications http_s://www.bao. org/Twudb-Ycklcv-Z llness/Treatments/ Ezjtnv-Xgrcus-Lcbw cations Recommend decrease/stop cannabis use as it may be negatively impacting mood, motivation, anxiety, sleep, focus; can also contribute to development of psychosis Cannabis/marijuana information: http_s://karen.nih. gov/publications/d rugfacts/cannabis- marijuana http_s://www.[employer]/cannabi g-xte-iyogrsna-mar ijuana-adhd/ http_s://www.bao. org/Elmhn-Zwhzjs-U llness/Mental-Heal th-Conditions http_s://psychShowroomprive.com/depression /dfc-xqhghqokm-tel afkcg-zf-harrruawb n#treatments http__s://www.nimh .nih.gov/health/to pics/mental-health -medications http__s://www.bao .org/About-Mental- Illness/Treatments /Dvhsau-Rwmktb-Uje ications educated on all medications, benefits, side effects and risk, and educated on depression, anxiety, and ADHD, mood d/o and educated on compliance of medications, metabolic and movement d/o education appointment's, continue therapy discussion with patient about course of treatment and patient instructions. education on serotonin syndrome Discussed and educated pt regarding benzodiazepines are generally not intended for prolonged use and that use can cause tolerance, dependence, depression, and associated memory issues including dementias (this list is not exhaustive). Benzodiazepine use is generally not recommended concurrently with pain medications and/or other controlled substances educated on all medications, benefits, side effects and risk, and educated on depression, anxiety, and ADHD, mood d/o and educated on compliance of medications, metabolic and movement d/o education appointment is, continue therapy discussion with patient about course of treatment and patient instructions. education on serotonin syndrome SSRI/SNRI side effects discussed including but not limited to, gastric upset, nausea, vomiting, diarrhea and/or constipation, weight changes, sexual side effects including loss of libido, increased suicidal thoughts/behaviors in children and young adults, and serotonin syndrome. Medication Management and Follow-Up - Plan: - Schedule follow-up appointments every 1-3 months to monitor the patient's response to the medication regimen. - Reinforce the importance of avoiding recreational drug use due to potential neurotoxicity and interactions with prescribed medications. Plan Of Treatment No Information Insurance Providers Payer Name Payer Address Payer Phone Subscriber Number Group Number Insured Name Patient Relationship to Insured Coverage Start Date Coverage End Date [facility] [address] [place] [phone] [id number] Shavonne Burdick Self - patient is the insured Medical (General) History Medical History History ICD Code Past Psychiatric History: Anxiety Disord er abdominal aortic aneurysm: No atrial fibrillation: No chronic fatigue syndrome: No essential tremor: No hyperlipidemia: No hypertension: No Parkinson's disease: No restless leg syndrome: No stroke: No subdural hematoma: No type 1 diabetes mellitus: No type 2 diabetes mellitus: No vitamin B12 deficiency: No vitamin D deficiency: No Surgical History Surgery Date(Month/Year) hernia age 53 years old
--- OUTSIDE RECORDS SUMMARY | 2025-05-18 13:50 | XMS_ITS | Clinical Summary ---
Author Organization [facility] Address [address] [place] [address] Phone Care Team Providers Care Day Care Center Director Name Role Phone Provider, None Primary Care Provider Unavailabl e Allergies No known active allergies Medications Tri-Sprintec 0.18/0.215/0.25 MG-35 MCG Tablet Take 1 Tablet by mouth daily. 05/30/2024 Active Active Problems Problem Noted Date Diagnosed Date Generalized anxiety disorder 02/09/2025 Adjustment disorder with depressed mood 02/10/20 Physical exam, annual (Adult) 02/24/2018 Acne vulgaris 02/24/2018 Encounters Date Type Department Care Team Description 05/03/2025 9:00 AM CDT Telemedicine [facility] [address] [place] [phone] Mary Philippe LCSW Generalized anxiety disorder (Primary Dx); Adjustment disorder with depressed mood Discharge Disposition: Discharged to home or Selfcare 04/19/2025 9:00 AM CDT Telemedicine [facility] [address] [place] [phone] Mary Philippe LCSW Generalized anxiety disorder (Primary Dx); Adjustment disorder with depressed mood Discharge Disposition: Discharged to home or Selfcare 04/18/2025 Travel 04/05/2025 9:00 AM CDT Telemedicine [facility] [address] [place] [phone] Jose Martin, Mary D, KENNEL ATTENDANT Generalized anxiety disorder (Primary Dx); Adjustment disorder with depressed mood Discharge Disposition: Discharged to home or Selfcare 04/05/2025 Travel 03/22/2025 1:45 PM CDT [facility] [address] [place] [phone] Mary Philippe LCSW Generalized anxiety disorder (Primary Dx); Adjustment disorder with depressed mood Discharge Disposition: Discharged to home or Selfcare 03/22/2025 Travel 03/02/2025 9:15 AM CDT [facility] [address] [facility] [place] [phone] Mary Philippe LCSW Generalized anxiety disorder (Primary Dx); Adjustment disorder with depressed mood Discharge Disposition: Discharged to home or Selfcare 03/01/2025 Travel 02/16/2025 9:15 AM CDT Telemedicine [facility] [address] [facility] [place] [phone] Mary Philippe, ADEN Generalized anxiety disorder (Primary Dx); Adjustment disorder with depressed mood Discharge Disposition: Discharged to home or Selfcare from Last 3 Months Family History Medical History Relation Name Comments Diabetes Maternal Grandfather Cancer Maternal Grandmother Cancer Paternal Grandmother Relation Name Status Comments Father Alive Maternal Grandfather Maternal Grandmother Mother Alive Paternal Grandmother Social History Tobacco Use Types Packs/Day Years Used Date Smoking Tobacco: Never Smokeless Tobacco: Never Tobacco Cessation:Counseling Given: Not Answered Alcohol Use Standard Drinks/Week Comments No 0 (1 standard drink = 0.6 oz pur e alcohol) Sexually Active Control Partners Comments Never Comments No Sex and Gender Information Value Date Recorded Sex Assigned at Not on file Legal Sex Female 10:32 PM CDT Gender Identity Not on file Sexual Orientation Not on file Last Filed Vital Signs Vital Sign Reading Time Taken Comments Blood Pressure 111/79 08/22/2024 10:05 AM CDT Pulse 90 08/22/2024 10:05 AM CDT Temperature 36.4 C (97.6 F) 08/22/2024 10:05 AM CDT Respiratory Rate 16 08/22/2024 10:05 AM CDT Oxygen Saturation 97% 08/22/2024 10:05 AM CDT Inhaled Oxygen Concentration - - Weight 72.6 kg (160 lb) 08/22/2024 10:05 AM CDT Height 160 cm (5' 3) 08/22/2024 10:05 AM CDT Body Mass Index 28.34 08/22/2024 10:05 AM CDT Plan of Treatment Upcoming Encounters Date Type Department Care Team (Late st Contact Info) Description 05/31/2025 9:00 AM CDT Telemedicine [facility] [address] [place] [phone] Mary Philippe, KENNEL ATTENDANT [address] [place] [address] Discharge Disposition: Discharged to home or Selfcare Health Maintenance Due Date Last Done Comments Hepatitis C Virus (HCV) Screening 2003 Meningococcal B Immunization (2 of 2 - Bexsero SCDM 2-dose series) 11/28/2021 05/28/2021 Pap Smear 2024 SARS-COV-2 Immunization ( season) 2024 01/31/2021, 01/10/2021 Influenza Immunization (#1) 2025 09/10/2021 Respiratory Syncytial Virus (RSV) Immunization (Adult) (1 - 1-dose 75+ series) 2078 Hepatitis B Immunization Completed 003, 2003, 2003 Measles Mumps Rubella (MMR) Immunization Discontinued 06/22/2008, 07/15/2004 Polio (IPV) Immunization Discontinued 008, 10/23/2004, 2003, Additional history exists Varicella Immunization Discontinued 06/22/2008, 2003 DTaP/Tdap/Td Immunization Discontinued 2013, 06/22/2008, 10/23/2004, Additional history exists TdaP Immunization Completed 04/30/2014 Human Papillomavirus (HPV) Immunization Completed 04/07/2017, 04/30/2014 Hepatitis A Immunization Discontinued 05/28/2021, 03/25 Meningococcal Immunization (ACWY) Completed 05/28/2021, 04/30/2014 Pneumococcal Immunization Combined Aged Out No longer eligible based on patient's age to complete this topic Rotavirus Immunization Aged Out No lo nger eligible based on patient's age to complete this topic Goals Goal Patient Goal Type Associated Problems Recent Progress Patient-Stated? Author ANXIETY Anxiety Improving( 11:14 AM CDT) No Mary Philippe, ADEN Note: Goal/Objective: Increase coping skills, emotional regulation tools and focus on self care. Anticipated Time Frame for Goal Completion: 6 months Goal Reviewed with: patient Readiness to change: Ready to change Department associated with goal: [facility] Steps to achieve goal: will attend counseling/psychotherapy sessions at least once monthly, at least 6 sessions, utilizing individual and/or group sessions to express thoughts and feelings. to identify, verbalize and process at least three contributing factors/triggers to anxiety and depression. to identify and verbalize at least three actions/skills to prevent and/or cope with anxiety and depression. to put into action, at least one time weekly, for one month, an action/skill to prevent and or cope with anxiety and depression. Depression Depression Improving( 11:14 AM CDT) Yes Mary Philippe, KENNEL ATTENDANT Note: Improve my mental health, chip away at my anxiety, talk about mood stabilization, communication strategies and positive self talk Goal/Objective: Increase emotional regulation strategies Anticipated Time Frame for Goal Completion: 6 months Goal Reviewed with: patient Readiness to change: Ready to change Department associated with goal: [facility] Steps to achieve goal: 1. will be able to identify cognitive distortions/errors in thinking and rational vs irrational thoughts that trigger anxiety. 2. will be able to challenge cognitive distortions and irrational thoughts with positive counter-thoughts. 3. will evaluate how well this method of reducing anxiety triggering thoughts is helping 4. Will attend Individual and/or Group sessions at least 1x/month at least 6 sessions Insurance [facility] Care Teams Day Care Center Director Relationship Specialty Start Date End Date Provider, None MAME PCP - General 06/12/24
--- OUTSIDE RECORDS SUMMARY | 2025-05-18 13:50 | XMS_ITS | Clinical Summary ---
Author Organization [facility] Address [address] [place] [address] Care Team Providers Care Business Information Analyst Name Role Phone iKnga Cuenca MD Primary Care Provider Source Comments [facility],non-owned Affiliates and Associated Physician Practices is amultiple site organization consisting of ambulatory clinics and hospital sitesin [place], [place], [place] and [place]. This disclosure is being madepursuant to the Care Everywhere program and may not contain all information available regarding this patient. Last updated 18.[facility] Allergies No known active allergies Medications * Be aware that medications may not be up to date on this document. Alwaysverify current medications with the patient. ISOtretinoin 40 MG capsule Take 40 mg by mouth 2 times daily with morning and evening meal Active Social History Tobacco Use Types Packs/Day Years Used Date Smoking Tobacco: Never Smokeless Tobacco: Never Comments No Sex and Gender Information Value Date Recorded Sex Assigned at Not on file Legal Sex Female 6:50 AM MENDING CARRIER Gender Identity Not on file Sexual Orientation Not on file Last Filed Vital Signs Vital Sign Reading Time Taken Comments Blood Pressure 106/58 09/11/2021 7:12 PM MENDING CARRIER Pulse 124 09/11/2021 7:12 PM MENDING CARRIER Temperature 39.3 C (102.8 F) 09/11/2021 7:12 PM MENDING CARRIER Respiratory Rate 18 09/11/2021 7:12 PM MENDING CARRIER Oxygen Saturation 98% 09/11/2021 7:12 PM MENDING CARRIER Inhaled Oxygen Concentration - - Weight 68.9 kg (152 lb) 11/21/2019 4:34 PM MENDING CARRIER Height 163.8 cm (5' 4.5) 11/21/2019 4:34 PM MENDING CARRIER Body Mass Index 25.69 11/21/2019 4:34 PM MENDING CARRIER Plan of Treatment Health Maintenance Due Date Last Done Comments HIV SCREENING 2018 HPV VACCINE (1 - 3-dose series) 2018 CHLAMYDIA/GONORRHEA SCREENING 2019 MENINGOCOCCAL (Group B) VACC INE SHARED DECISION-MAKING (1 of 2 - Standard) 2019 HEPATITIS C SCREENING 03/30/2021 DTAP/TDAP/TD VACCINES (1 - Tdap) 2022 HEPATITIS B VACCINE (1 of 3 - 19+ 3-dose series) 2022 COVID-19 VACCINE (1 - 2023-2 5 season) 2024 DEPRESSION SCREENING 10/25/2024 INFLUENZA VACCINE (#1) 2025 ZOSTER VACCINE (1 of 2) 2053 HIB VACCINE Aged Out No longer eligi ble based on patient's age to complete this topic MENINGOCOCCAL GROUPS A/C/Y/W VACCINE Aged Out No longer eligible b ased on patient's age to complete this topic PNEUMOCOCCAL VACCINE Aged Out No long er eligible based on patient's age to complete this topic Insurance [facility] MEDICA[facility] - [place] Care Teams Business Information Analyst Relationship Specialty Start Date End Date Kinga Cuenca MD PCP - General Internal Medicine 09/11/21
[2025-05-18 13:57] VITALS: BP 115/75; PULSE 76; RESP 16; TEMP 37; O2SAT 100
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
[2025-05-18 15:00] VITALS: PULSE 78; RESP 18; TEMP 36.8
[2025-05-18 15:22] LABS: Add Urine Microscopic? YES; Appearance Urine Clear (Clear); Glucose Urine UA Negative (Negative); Leukocyte Esterase Ur Trace LEU/UL (Negative); Need Manual Microscopic Reviewed; Nitrate Urine Negative (Negative); Specific Grav Ur 1.024 (1.001-1.035)
[2025-05-18 16:03] VITALS: BP 132/67; PULSE 72; RESP 16; O2SAT 100
[2025-05-18 16:05] LABS: BEDSIDEPREGUCG Negative (Negative)
--- OUTSIDE RECORDS SUMMARY | 2025-05-18 16:12 | XMS_ITS | Clinical Summary ---
Author Organization [facility] Address [address] [place] [address] Care Team Providers Care Cost Specialist Name Role Phone Kinga Cuneca MD Primary Care Provider Source Comments [facility],non-owned Affiliates and Associated Physician Practices is amultiple site organization consisting of ambulatory clinics and hospital sitesin [place], [place], [place] and [place]. This disclosure is being madepursuant to the Care Everywhere program and may not contain all information available regarding this patient. Last updated 18.[employer] [facility] Allergies No known active allergies Medications * [...] on file Legal Sex Female 6:50 AM INSURANCE COUNSEL Gender Identity Not on file Sexual Orientation Not on file Last Filed Vital Signs Vital Sign Reading Time Taken Comments Blood Pressure 106/58 09/11/2021 7:12 PM INSURANCE COUNSEL Pulse 124 09/11/2021 7:12 PM INSURANCE COUNSEL Temperature 39.3 C (102.8 F) 09/11/2021 7:12 PM INSURANCE COUNSEL Respiratory Rate 18 09/11/2021 7:12 PM INSURANCE COUNSEL Oxygen Saturation 98% 09/11/2021 7:12 PM INSURANCE COUNSEL Inhaled Oxygen Concentration - - Weight 68.9 kg (152 lb) 11/21/2019 4:34 PM INSURANCE COUNSEL Height 163.8 cm (5' 4.5) 11/21/2019 4:34 PM INSURANCE COUNSEL Body Mass Index 25.69 11/21/2019 4:34 PM INSURANCE COUNSEL Plan of Treatment Health Maintenance Due Date [...] patient's age to complete this topic Insurance [facility] MEDICAID - [place] Care Teams Cost Specialist Relationship Specialty Start Date End Date Kinga Cuenca MD PCP - General Internal Medicine 09/11/21
--- OUTSIDE RECORDS SUMMARY | 2025-05-18 16:12 | XMS_ITS | Clinical Summary ---
Author Organization [facility] Address [address] [place] [address] Phone Care Team Providers Care Second Rigger Name Role Phone Provider, None Primary Care [...] Team Description 05/03/2025 9:00 AM CDT Telemedicine [facility] [address] [place] [phone] Mary Philippe LCSW Generalized anxiety disorder (Primary Dx); Adjustment disorder with depressed mood Discharge Disposition: Discharged to home or Selfcare 04/19/2025 9:00 AM CDT Telemedicine [facility] [address] [place] [phone] Mary Philippe LCSW Generalized anxiety disorder (Primary Dx); Adjustment disorder with depressed mood Discharge Disposition: Discharged to home or Selfcare 04/18/2025 Travel 04/05/2025 9:00 AM CDT Telemedicine [facility] [address] [place] [address] [phone] Jose Martin, Mary D, [employer] Generalized anxiety disorder (Primary Dx); Adjustment disorder with depressed mood Discharge Disposition: Discharged to home or Selfcare 04/05/2025 Travel 03/22/2025 1:45 PM CDT [facility] [address] [place] [address] Mary Philippe LCSW Generalized anxiety disorder (Primary Dx); Adjustment disorder with depressed mood Discharge Disposition: Discharged to home or Selfcare 03/22/2025 Travel 03/02/2025 9:15 AM CDT [facility] [address] [place] [address] Mary Philippe LCSW Generalized anxiety disorder (Primary Dx); Adjustment disorder with depressed mood Discharge Disposition: Discharged to home or Selfcare 03/01/2025 Travel 02/16/2025 9:15 AM CDT [facility] [address] [place] [phone] Mary Philippe, ADEN Generalized anxiety disorder (Primary [...] 05/31/2025 9:00 AM CDT Telemedicine [facility] [address] [place] [phone] Mary Philippe, [employer] [address] [place] [address] Discharge Disposition: Discharged to home or Selfcare [...] Ready to change Department associated with goal: [facility] Steps to achieve goal: [...] Improving( 11:14 AM CDT) Yes Mary Philippe, [employer]CEIVING [employer] Note: Improve my mental health, chip away at my anxiety, talk about mood stabilization, communication strategies and positive self talk Goal/Objective: Increase emotional regulation strategies Anticipated Time Frame for Goal Completion: 6 months Goal Reviewed with: patient Readiness to change: Ready to change Department associated with goal: [facility] Steps to achieve goal: [...] least 1x/month at least 6 sessions Insurance [facility] Care Teams Second Rigger Relationship Specialty Start Date End Date Provider, None MAME PCP - General 06/12/24
== END 2025-05-18 16:23 | disposition home or self-care (01) ==
LOC: ANHED 16:11
PROVIDERS: Emergency Provider Registered Nurse
DX: S06.0X0A Concussion without loss of consciousness, initial encounter (principal); S13.4XXA Sprain of ligaments of cervical spine, initial encounter; S16.1XXA Strain of muscle, fascia and tendon at neck level, initial encounter; V43.52XA Car driver injured in collision with other type car in traffic accident, initial encounter
CPT/HCPCS: 70450; 72125; 81001; 81025; 99284; L0140